=== PATIENT | female | born 1995 | race Two or more races ===

== ENCOUNTER → 2021-03-09 | Outpatient (CLI) | payer OTHER ==
--- NOTE | 2021-03-09 16:15 | REP ---
INDICATION: 2ND TRIMESTER TWIN COMPLETE. COMPARISON: None. TECHNIQUE: Real-time sonographic evaluation of the gravid uterus performed. FINDINGS: There is a living intrauterine twin gestation, diamniotic dichorionic. Estimated gestational age isreportedly 20 weeks 4 days, EDC 07/23/2021. Today's measurements indicate appropriate concordant growth. Closed cervical length is measured at 4.4 cm. Fetus a: Presentation: Breech Placenta anterior, grade 0, without evidence of placenta previa. heart rate is recorded at 147 beats per minute. Amniotic fluid is subjectively normal. Largest pocket of fluid surrounding fetus a 4.4 cm. Biometry chart: BPD: 48 mm, 20 weeks 3 days, 46th percentile. HC: 184 mm, 20 weeks 5 days, 54th percentile AC: 161 mm, 21 weeks 1 days, 63rd percentile Femur length: 34 mm, 20 weeks 6 days, 55th percentile HC to AC ratio: 1.14, normal range 1.06-1.24. Estimated weight: 390g, 66th percentile. anatomy: Cranium: Grossly normal Lateral Ventricles/Choroid Plexus: Grossly normal Posterior Fossa/Cerebellum: Not well seen due to position Nose/lips/profile: Not well seen due to position Four chamber heart: Grossly normal Right ventricular outflow tract: Well seen due to position Left ventricular outflow tract: Not well seen due to position Left-sided stomach: Grossly normal Kidneys: Grossly normal Bladder: Grossly normal Cord Insertion: Grossly normal 3 vessel cord: Grossly normal Spine: Not well seen due to position Fetus b: Presentation: Breech Placenta posterior, grade 0, without evidence of placenta previa. heart rate is recorded at 128 beats per minute. Amniotic fluid is subjectively normal. Largest pocket of fluid surrounding fetus B 5.5 cm. Biometry chart: BPD: 49 mm, 20 weeks 6 days, 57th percentile. HC: 181 mm, 20 weeks 4 days, 48th percentile AC: 158 mm, 21 weeks 0 days, 57th percentile Femur length: 34 mm, 20 weeks 5 days, 52nd percentile HC to AC ratio: 1.15, normal range 1.06-1.24. Estimated weight: 378g, 56th percentile. anatomy: Cranium: Grossly normal Lateral Ventricles/Choroid Plexus: Grossly normal Posterior Fossa/Cerebellum: Grossly normal Nose/lips/profile: Not well seen due to position Four chamber heart: Not well seen due to position Right ventricular outflow tract: Not well seen due to position Left ventricular outflow tract: Not well seen due to position Left-sided stomach: Grossly normal Kidneys: Grossly normal Bladder: Grossly normal Cord Insertion: Grossly normal 3 vessel cord: Grossly normal Spine: Grossly normal IMPRESSION: Viable intrauterine twin gestation as above. <Electronically signed by Guy Balbuena > 03/09/21 [id number]
== END ==
LOC: M RAD 14:51
PROVIDERS: ATTEND Obstetrics & Gynecology Reproductive Endocrinology
DX: O26.852 Spotting complicating pregnancy, second trimester (principal); O30.042 Twin pregnancy, dichorionic/diamniotic, second trimester; Z3A.20 20 weeks gestation of pregnancy

== ENCOUNTER 2021-04-17 00:21 | Emergency (ER) | payer OTHER ==
[~2021-04-17] VITALS: Ht 152.4 cm; Wt 84.9 kg
[2021-04-17 00:23] VITALS: BP 125/77
[2021-04-17] MEDS ORDERED: ASPI81CH33 PO (00:31)
[2021-04-17] MEDS ORDERED: DOCU-153 PO (00:31)
== END 2021-04-17 00:57 | disposition left against medical advice (07) ==
LOC: M ED 00:21
DX: Z53.21 Procedure and treatment not carried out due to patient leaving prior to being seen by health care provider (principal)

== ENCOUNTER 2021-04-18 08:29 | Outpatient (CLI) | payer OTHER ==
[~2021-04-18] VITALS: Ht 152.4 cm; Wt 82.3 kg
[~2021-04-18 08:29] MED LIST: ASPI81CH33 PO; DOCU-153 PO
[2021-04-18] MEDS ORDERED: IRON SUCROSE 300 MG in NS 250 ML OVER 90 MIN. IV ONE (08:30)
[2021-04-18 09:01] VITALS: BP 135/76
[2021-04-18 10:48] VITALS: BP 120/80
== END 2021-04-18 10:50 | disposition home or self-care (01) ==
LOC: M INFU 08:29
PROVIDERS: ATTEND Obstetrics & Gynecology
DX: O99.012 Anemia complicating pregnancy, second trimester (principal); D50.9 Iron deficiency anemia, unspecified; Z3A.25 25 weeks gestation of pregnancy
CPT/HCPCS: 96365; 96366; J1756

== ENCOUNTER 2021-04-26 09:10 | Outpatient (CLI) | payer OTHER ==
[~2021-04-26] VITALS: Ht 147.3 cm; Wt 83.6 kg
[2021-04-26 09:10] VITALS: BP 143/72
[~2021-04-26 09:10] MED LIST changes: +IRON SUCROSE 300 MG in NS 250 ML OVER 90 MIN. IV ONE
[2021-04-26 10:30] VITALS: BP 131/69
[2021-04-26 12:15] VITALS: BP 115/60
== END 2021-04-26 12:30 | disposition home or self-care (01) ==
LOC: M INFU 09:10
PROVIDERS: ATTEND Obstetrics & Gynecology
DX: O99.012 Anemia complicating pregnancy, second trimester (principal); D50.9 Iron deficiency anemia, unspecified; Z3A.25 25 weeks gestation of pregnancy
CPT/HCPCS: 96365; 96366; J1756

== ENCOUNTER 2021-05-03 08:55 | Outpatient (CLI) | payer OTHER ==
[2021-05-03 09:00] VITALS: BP 113/56
[2021-05-03 11:00] VITALS: BP 118/66
== END 2021-05-03 11:05 | disposition home or self-care (01) ==
LOC: M INFU 08:55
PROVIDERS: ATTEND Obstetrics & Gynecology
DX: O99.012 Anemia complicating pregnancy, second trimester (principal); D50.9 Iron deficiency anemia, unspecified; Z3A.25 25 weeks gestation of pregnancy
CPT/HCPCS: 96365; 96366; J1756

== ENCOUNTER 2021-06-28 08:11 | Inpatient (IN) | payer OTHER ==
[~2021-06-28] VITALS: Ht 152.4 cm; Wt 88.0 kg
[2021-06-28] VITALS (7 sets, daily range): BP systolic 114–125; BP diastolic 50–84
[~2021-06-28 08:11] MED LIST changes: +CALC-190 PO; +FLINCHW2 PO; -IRON SUCROSE 300 MG in NS 250 ML OVER 90 MIN. IV ONE; +MELA2.5C4 PO; +OMEP40CA4 PO
[2021-06-28] MEDS ORDERED: TRANEXAMIC ACID INJection 1,000 MG in NS 100 ML IV PRN (09:15)
[2021-06-28] MEDS ORDERED: OXYTOCIN INJ 10 UNITS/ML VIAL (J2590) IM PRN (09:15)
[2021-06-28] MEDS ORDERED: ceFAZolin SOD 2 GM in IV 1 EA IV ONE (09:15)
[2021-06-28] MEDS ORDERED: BICITRA 30ML SOLN UDC PO ONE (09:15)
[2021-06-28] MEDS ORDERED: OXYTOCIN DRIP 30 UNITS in IV 1 EA IV PRN ×4 (09:15)
[2021-06-28] MEDS ORDERED: CARBOPROST TROMETHAMINE 250 MCG/ML AMP IM PRN (09:15)
[2021-06-28] MEDS ORDERED: METHYLERGONOVINE MALEATE 0.2 MG/ML VIAL (J2210) IM PRN (09:15)
[2021-06-28] MEDS ORDERED: AZITHROMYCIN INJ 500 MG, VIAL MATE ADAPTER 1 EACH in NS 250 ML IV ONE (09:15)
[2021-06-28] MEDS: LR 1,000 ML IV SCH ×2 (09:30→17:11)
--- NOTE | 2021-06-28 09:43 | HPEPDOC ---
Obstetrical History & Physical General Date of Admission Jun 28, 2021 at 08:59 History of Present Illness Jose Angel Nguyen is a 25yo G1 at 36+0 weeks gestation with zacarias twins via IVF pres enting for prelabor rupture of membranes. She describes a gush of clear fluid this morning at 0700 which has continued to flow intermittently. She denies vaginal bleeding. She endorses occasional contractions and positive movement. 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 of PID) Past Medical History Surgical History: Other (lsc bl salpingectomy, extensive pelvic adhesions noted) Family History Family History mother - hypertension, depression maternal gm - ovarian cancer maternal gf - colon cancer Social History Marital Status: Family situation: Spouse/partner home Psychosocial History: No pertinent psych hx * Smoker: non-smoker Alcohol: Denies Drugs: denies Abuse Violence Screening Have you been hit/kicked/slapp: No Have you been sexually assault: No Imunizations Tdap status: current Influenza Status: current Allergies Coded Allergies: Latex, Natural Rubber (Verified Allergy, Mild, itching, 06/27/21) Medications Scheduled Aspirin (Aspirin) 81 Mg Tab.chew, 81 MG PO DAILY for pain Calcium Carbonate/Vitamin D3 (Calcium 1,000 + D3 Caplet) 1 Each Tablet, 1 TAB PO DAILY Docusate Sodium (Stool Softener) 100 Mg Capsule, 1 CAP PO DAILY Melatonin (Melatonin) 2.5 Mg Tab.chew, 2.5 MG PO QPM for sleep Multivitamin (Flintstones) 1 Each Tab.chew, 1 CHW PO DAILY Omeprazole (Omeprazole) 40 Mg Capsule.dr, 40 MG PO DAILY Physical Examination Physical Examination GENERAL: Alert and oriented times three. ABDOMEN: Gravid and non-tender to touch. FETUS: by abdominal ultrasound, twin A cephalic twin B transverse maternal left occiput HEART RATE: Regular rate LUNGS: nonlabored breathing EXTREMITIES: No edema. 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 No visual dilation of cervix. Digital exam deferred. Laboratory Data 24H LABS Laboratory Tests 2 06/28/21 09:17: Serology Scanned Report Hepatitis B Testing Urine Culture: No Growth Pertinent Laboratoy Data Blood Type: O+ RBC Antibody Screen: Negative HIV: Negative Hepatitis B: Negative Rapid Plasma Reagin: Nonreactive Rubella: Immune Varicella: Nonreactive Chlamydia/Gonorrhea: Negative Group B Streptococcus: Unknown Cystic Fibrosis: Negative Glucose Tolerance Test: 140 Anatomy Ultrasound Placenta Location: Twin A (anterior / twin B posterior) Normal Anatomy: Yes Placenta Previa: No (resolved) Other Ultrasounds Information Twin A placenta anterior Twin B placenta posterior Normal anatomy for both twins Steroid Therapy Steroid Therapy: No Vaginal Examination Dilation: None (visually on speculum exam) Assessment/Plan Assessment Jose Angel Nguyen is a 25yo G1 at 36+0 with zacarias twins by IVF presenting with late rupture of membranes. She was initially scheduled for at 38 weeks. She otherwise feels well today and denies vaginal bleeding. Endorses irregular contractions and positive movement. GBS testing was collected in clinic last week, contacting clinic for results. Otherwise category I tracing for both fetuses. Twin A cephalic, twin B transverse. Plan To OR for delivery. I discussed with the patient mode of delivery and she is requesting delivery. We discussed delivery vs expectant management and she desires delivery. We discussed late steroids and she declines steroids at this time. All of this is reasonable in my opinion and we will proceed to delivery. I requested a second export clerk to assist me due to her history of extensive pelvic adhesions. Dr. Coburn is available at 1030 so we will proceed at that time. Labs drawn, anesthesia consulted. Ancef and azithromycin for surgical prophylaxis. Labor and Delivery Counseling Discussed risks of delivery including infection, bleeding, damage to nearby tissues/organs, damage to the fetus, maternal , risks of anesthesia. Also consented for blood transfusion and discussed possible need for hysterectomy as life-saving measure. She agrees to the procedure and indicating understanding of the conversation. JAVIER COOPER DO Jun 28, 2021 09:43
[2021-06-28] MEDS ORDERED: HOME MED LIST COMPLETE! XX SCH (09:45)
[2021-06-28 09:53] LABS: MEAN CORPUSCULAR HEMOGLOBIN 27.7 pg (27.0-33.0); MEAN CORPUSCULAR HGB CONC 35.1 g/dl (32.0-36.5); MEAN CORPUSCULAR VOLUME 78.9 fl (80.0-96.0); PLATELET COUNT, AUTOMATED 154 10^3/uL (150-450); RED BLOOD COUNT 4.69 10^6/uL (4.00-5.40); WHITE BLOOD COUNT 6.2 10^3/uL (4.0-10.0)
[2021-06-28] MEDS ORDERED: MORPHINE PRES-FREE INJ 10 MG/10 ML VIAL (J2274) As Ordered ONE (10:37)
[2021-06-28] MEDS ORDERED: OXYTOCIN 30 UNITS IN 0.9% NaCl 500ML IV BAG (J2590) As Ordered ONE ×2 (10:39→13:05)
[2021-06-28] MEDS ORDERED: METOCLOPRAMIDE INJ 10MG/2ML VIAL (J2765 PER 1) As Ordered ONE (10:42)
[2021-06-28] MEDS ORDERED: ONDANSETRON 4MG/2ML VIAL As Ordered ONE (10:42)
[2021-06-28] MEDS ORDERED: ONDANSETRON 4MG/2ML VIAL IV PRN ×3 (11:15→13:25)
[2021-06-28] MEDS ORDERED: NALOXONE INJ 0.4MG/1ML VIAL (J2310 PER 1MG) IV PRN ×2 (11:15)
[2021-06-28] MEDS ORDERED: NALBUPHINE HCL 10 MG/ML AMP (J2300) IV PRN (11:15)
[2021-06-28] MEDS ORDERED: diphenhydrAMINE 50MG/ML VIAL (J1200) IV PRN (11:15)
[2021-06-28] MEDS ORDERED: METOCLOPRAMIDE INJ 10MG/2ML VIAL (J2765 PER 1) IV PRN (11:15)
[2021-06-28] MEDS ORDERED: MIDAZOLAM INJ 2MG/2ML VIAL (J2250 PER 1MG) As Ordered ONE (11:22)
[2021-06-28] MEDS ORDERED: ePHEDrine SULFATE 25 MG/5 ML(5MG/ML) SYRINGE As Ordered ONE (11:36)
[2021-06-28] MEDS ORDERED: PHENYLephrine 500MCG 5ML (100MCG/ML) SYRINGE As Ordered ONE (11:36)
[2021-06-28] MEDS ORDERED: MEPERIDINE 50 MG/ML 1ML VIAL (J2175) As Ordered ONE (11:55)
[2021-06-28 12:11] LABS: CORD GAS ABE A -10.8; CORD GAS ABE V -10.8; CORD GAS HCO3 A 20.9 MEQ/L; CORD GAS HCO3 V 17.5 MEQ/L; CORD GAS O2 SAT A 23.7 %; CORD GAS O2 SAT V 79.4 %; CORD GAS PCO2 A 74.7 mmHg; CORD GAS PCO2 V 47.4 mmHg; CORD GAS PH A 7.065 UNITS; CORD GAS PH V 7.184 UNITS; CORD GAS PO2 A 17.6 mmHg; CORD GAS PO2 V 42.9 mmHg; CORD GAS SBC A 14.6 MEQ/L; CORD GAS SBC V 15.7 MEQ/L; CORD GAS TCO2 A 23.2 MEQ/L; CORD GAS TCO2 V 18.9 MEQ/L
[2021-06-28 12:14] LABS: CORD GAS ABE V -5.1; CORD GAS HCO3 V 22.4 MEQ/L; CORD GAS PCO2 V 50.1 mmHg; CORD GAS PH V 7.268 UNITS; CORD GAS PO2 V 34.9 mmHg; CORD GAS SBC V 19.8 MEQ/L; CORD GAS TCO2 V 23.9 MEQ/L
[2021-06-28 12:15] LABS: CORD GAS ABE A -7.4; CORD GAS HCO3 A 21.4 MEQ/L; CORD GAS O2 SAT A 71.5 %; CORD GAS PH A 7.201 UNITS; CORD GAS PO2 A 36.1 mmHg; CORD GAS TCO2 A 23.2 MEQ/L
[2021-06-28] MEDS ORDERED: KETOROLAC 60MG 2ML VIAL As Ordered ONE (12:19)
[2021-06-28] MEDS ORDERED: DOCUSATE SODIUM 100MG CAPSULE PO PRN (12:40)
[2021-06-28] MEDS ORDERED: PROMETHAZINE 25 MG TAB PO PRN (12:40)
[2021-06-28] MEDS ORDERED: RHOGAM 300 MCG (1500 IU) INJ (J2790) IM SCH (12:40)
[2021-06-28] MEDS ORDERED: MEASLES,MUMPS,RUBELLA VACCINE INJ (MMR-II) (90707) SC SCH (12:40)
[2021-06-28] MEDS ORDERED: METHYLERGONOVINE MALEATE 0.2 MG TAB PO PRN (12:40)
[2021-06-28] MEDS ORDERED: oxyCODONE 5MG TAB PO PRN ×3 (12:40→13:25)
[2021-06-28] MEDS ORDERED: MORPHINE 2 MG/ML 1ML VIAL (J2270) IV PRN (12:40)
--- NOTE | 2021-06-28 12:56 | ROOPDOC ---
[facility] Report Of Operation Report of Operation DATE OF PROCEDURE: 06/28/21 PREPROCEDURE DIAGNOSES: zacarias twin gestation, rupture of membranes, 36 weeks gestation, maternal request for POSTPROCEDURE DIAGNOSES: same as above, delivered PROCEDURE PERFORMED: primary low transverse delivery SURGEON: Javier Dong DO HISTOLOGY TEACHER: Steven Coburn DO ANESTHESIA: spinal ESTIMATED BLOOD LOSS: Approximately 700 mL. COMPLICATIONS: none FINDINGS: Twin A cephalic presentation, apgars 9/9; 2630g, Twin B breech apgars 7/9, 2690g. Normal appearing uterus and ovaries. Tubes not present. SPECIMENS REMOVED: arterial and venous cord blood gases for each twin DESCRIPTION OF PROCEDURE: After obtaining informed consent the patient was taken to the operating room and prepped/draped in the usual manner. A timeout was called and the patient name, date of and procedure to be performed were verified. A scalpel was used to make a transverse skin incision which was carried down to the fascia and and the fascia was scored. The fascial incision was extended laterally with scissors. The fascia was then dissected bluntly and sharply both superiorly and inferiorly from the rectus muscles. The peritoneum was entered bluntly and this was extended with traction. A bladder flap was created. The uterus was incised low transverse with the scalpel then entered bluntly with clear fluid noted. Twin A cephalic delivered easily with fundal pressure. The cord was clamped, cut and handed to awaiting pediatricians. I then attempted to deliver baby B and kept getting a hand as the presenting part. Dr. Coburn then was able to secure the legs and deliver them. I then proceeded with the usual breech delivery without issue. The cord was cut, clamped and the handed to awaiting pediatricians. Both placentas then delivered spontaneously and intact. The uterus was exteriorized and wiped with laparotomy sponges. The uterine incision was closed with 0-vicryl in a running locking fashion. Several 0-vicryl figure of eight sutures were placed for hemostasis. The posterior culdesac was irrigated with saline. The uterus was returned to the abdomen. Arrista was placed for hemotasis in the bladder flap. Hemostasis was noted at this and at the hysterotomy. The fascia was closed with running 0-vicryl. The subcutaneous tissue was irrigated and closed with 3-0 vicryl. The skin was closed with 4-0 monocryl. An optifoam dressing was placed. The vagina was cleared of clots. The patient was left in good condition en route to the PACU. JAVIER DONG. DO Jun 28, 2021 12:56
[2021-06-28] MEDS ORDERED: LR 1,000 ML IV SCH (13:25)
[2021-06-28] MEDS ORDERED: fentaNYL 100 MCG/2 ML INJECTION (J3010) IV PRN (13:25)
[2021-06-28] MEDS: ACETAMINOPHEN 500 MG TAB PO SCH ×2 (15:22→21:20)
[2021-06-28] MEDS: OMEPRAZOLE 20 MG CAP PO SCH (17:33)
[2021-06-28] MEDS: KETOROLAC 30 MG/ML 1ML VIAL IV SCH (18:06)
[2021-06-29] MEDS: KETOROLAC 30 MG/ML 1ML VIAL IV SCH ×2 (00:21→06:14)
[2021-06-29] MEDS: LR 1,000 ML IV SCH ×2 (01:15→09:20)
[2021-06-29] MEDS ORDERED: LR 500 ML IV ONE ×2 (01:20→05:05)
[2021-06-29] MEDS: SIMETHICONE 80MG CHEW TAB PO PRN (01:26)
[2021-06-29 02:00] VITALS: BP 111/60
[2021-06-29] MEDS: ACETAMINOPHEN 500 MG TAB PO SCH ×4 (04:25→21:34)
[2021-06-29 06:00] VITALS: BP 111/59
--- NOTE | 2021-06-29 06:59 | IPNPDOC ---
Progress Note Date of Service: Jun 29, 2021 Day#: 1 Progress Note SUBJECT: Jose Angel Nguyen is a 25-year-old 1 now Para 1002 status post uncomplicated primary low transverse delivery at 36+0 weeks' indicated for rupture of membranes and maternal request at approximately 1138 and 1142 hours on [id number] of two boys 2630g and 2690g; doing well day # 1. She has yet to ambulate, has a andersen in place and tolerating regular diet. Breast feeding/pumping without issue. Reports lochia is small. Her urine output has been low since surgery however is responding to fluid bolus. OBJECTIVE: VITAL SIGNS: Within normal limits, afebrile. Alert and oriented times three. Breath sounds clear to auscultation. Heart rate: Regular rate and rhythm, no murmurs, rubs or gallops. Abdomen: Fundus firm at U-2. Soft, appropriate tenderness postoperatively; gas distension tympanic to percussion, +bowel sounds. Incision covered with Optifoam with no strikethrough Negative calf tenderness bilaterally. [Minimal] lochia. ASSESSMENT: as above, doing well on day 1. Continue to encourage PO and monitor urine output. Consider bolus. Okay to start due to void in order to encourage ambulation. Vitals within normal limits, afebrile, hemodynamically stable with no evidence of infection. PLAN: - Tylenol and Motrin scheduled for pain. - Continue to encourage PO and monitor urine output. Consider bolus. Okay to start due to void in order to encourage ambulation. - Encourage breast feeding and ambulation. - IVF , tubes already removed - Routine PP visit in 2 and 6 weeks in clinic. - likely discharge tomorrow VS, I&O, 24H, Eliasbonleticia Vital Signs/I&O Vital Signs Date Time Temp Pulse Resp B/P (MAP) Pulse Ox O2 Delivery O2 Flow Rate FiO2 06/29/21 06:00 98.0 81 18 111/59 (76) 98 Room Air I&O- Last 24 Hours up to 6 AM 06/29/21 06:00 Intake Total 920 ml Output Total 1480 ml Balance -560 ml Laboratory Data 24H LABS Laboratory Tests 2 06/28/21 09:17: Serology Scanned Report Hepatitis B Testing 06/28/21 09:34: Nucleated Red Blood Cells % (auto) 0.0, Syphilis Serology NONREACTIVE, C oronavirus (COVID-19)(PCR) NEGATIVE 06/28/21 11:56: Cord Arterial Blood pH 7.065, Cord Arterial Blood PCO2 74.7, Cord Arterial Blood PO2 17.6, Cord Arterial Blood HCO3 20.9, Cord Arterial Blood Total CO2 23.2, Cord Arterial Blood Base Excess -10.8, Cord Arterial Base Excess (Standard 14.6, Cord Arterial Bld Oxygen Saturation 23.7, Cord Venous Blood pH 7.184, Cord Venous Blood PCO2 47.4, Cord Venous Blood PO2 42.9, Cord Venous Blood HCO3 17.5, Cord Venous Blood Total CO2 18.9, Cord Venous Base Excess (Actual) -10.8, Cord Venous Base Excess (Standard) 15.7, Cord Venous Blood Oxygen Saturation 79.4 06/28/21 12:01: Cord Arterial Blood pH 7.201, Cord Arterial Blood PCO2 56.0, Cord Arterial Blood PO2 36.1, Cord Arterial Blood HCO3 21.4, Cord Arterial Blood Total CO2 23.2, Cord Arterial Blood Base Excess -7.4, Cord Arterial Base Excess (Standard 18.0, Cord Arterial Bld Oxygen Saturation 71.5, Cord Venous Blood pH 7.268, Cord Venous Blood PCO2 50.1, Cord Venous Blood PO2 34.9, Cord Venous Blood HCO3 22.4, Cord Venous Blood Total CO2 23.9, Cord Venous Base Excess (Actual) -5.1, Cord Venous Base Excess (Standard) 19.8, Cord Venous Blood Oxygen Saturation 75.0 CBC/BMP Laboratory Tests 06/28/21 09:34 JAVIER COOPER DO Jun 29, 2021 06:59
[2021-06-29 08:04] LABS: HEMATOCRIT 29.4 % (36.0-47.0); MEAN CORPUSCULAR HEMOGLOBIN 27.9 pg (27.0-33.0); MEAN CORPUSCULAR HGB CONC 35.4 g/dl (32.0-36.5); MEAN CORPUSCULAR VOLUME 78.8 fl (80.0-96.0); PLATELET COUNT, AUTOMATED 148 10^3/uL (150-450); RED BLOOD COUNT 3.73 10^6/uL (4.00-5.40); WHITE BLOOD COUNT 9.4 10^3/uL (4.0-10.0)
[2021-06-29 08:15] LABS: HEMOGLOBIN 10.4 g/dl (12.0-15.5)
[2021-06-29] MEDS ORDERED: PRENATAL VITAMINS CHEWABLE TABLET PO SCH (09:00)
[2021-06-29] MEDS: PRENATAL VITAMINS CHEWABLE TABLET PO SCH (09:20)
[2021-06-29] MEDS: OMEPRAZOLE 20 MG CAP PO SCH (09:21)
[2021-06-29 10:00] VITALS: BP 109/54
[2021-06-29 14:00] VITALS: BP 112/71
[2021-06-29] MEDS: IBUPROFEN 800 MG TAB PO SCH ×2 (14:13→21:34)
[2021-06-29 18:01] VITALS: BP 113/59
[2021-06-29 22:00] VITALS: BP 111/61
[2021-06-30] MEDS: ACETAMINOPHEN 500 MG TAB PO SCH ×4 (03:51→21:44)
[2021-06-30] MEDS: IBUPROFEN 800 MG TAB PO SCH ×3 (05:49→21:43)
[2021-06-30 05:56] VITALS: BP 111/66
--- NOTE | 2021-06-30 07:06 | IPNPDOC ---
Progress Note Date of Service: Jun 30, 2021 Day#: 2 Progress Note SUBJECT: Jose Angel Nguyen is a 25-year-old 1 now Para 1002 status post uncomplicated primary low transverse delivery at 36+0 weeks' indicated for rupture of membranes and maternal request at approximately 1138 and 1142 hours on [id number] of two boys 2630g and 2690g; doing well day # 2. She has been ambulating, voiding spontaneously without issue and tolerating regular diet. Breast feeding without issue. Reports lochia is less than a normal period]. Patient is ambulating well. [Reports some cramping with . Denies any pain. Voiding and passing flatus without difficulty]. OBJECTIVE: VITAL SIGNS: Within normal limits, afebrile. Alert and oriented times three. No increased WOB Heart rate: non tachy Abdomen: Fundus firm at U-2. Soft, NTTP. Pfannenstiel incision is covered with o ptifoam without strikethrough. [Minimal] lochia. ASSESSMENT: Jose Angel Nguyen is a 25-year-old 1 now Para 1002 status post uncomplicated primary low transverse delivery at 36+0 weeks' indicated for rupture of membranes and maternal request at approximately 1138 and 1142 hours on [id number] of two boys 2630g and 2690g; doing well day # 2. Vitals within normal limits, afebrile, hemodynamically stable with no evidence of infection. PLAN: 1. Discharge to home likely tomorrow. 2. Tylenol and Motrin for pain. 3. Encourage breast feeding and ambulation. 4. She has a BTL for contraception 5. Routine PP visit in 6 weeks in clinic. 6. Discussed return precautions at length. VS, I&O, 24H, Eliasbone Vital Signs/I&O Vital Signs Date Time Temp Pulse Resp B/P (MAP) Pulse Ox O2 Delivery O2 Flow Rate FiO2 06/30/21 05:56 97.8 78 16 111/66 (81) 96 Room Air I&O- Last 24 Hours up to 6 AM 06/30/21 06:00 Intake Total 600 ml Output Total 450 ml Balance 150 ml Laboratory Data 24H LABS Laboratory Tests 2 06/29/21 07:37: Nucleated Red Blood Cells % (auto) 0.0 CBC/BMP Laboratory Tests 06/29/21 07:37 RAHUL KELLY DO Jun 30, 2021 07:06
[2021-06-30] MEDS: INFLUENZA QUADRIVALENT PF VACCINE 0.5ML SYRINGE IM ONE ×2 (08:29→12:58)
[2021-06-30] MEDS: PRENATAL VITAMINS CHEWABLE TABLET PO SCH (08:30)
[2021-06-30] MEDS: OMEPRAZOLE 20 MG CAP PO SCH (08:30)
[2021-06-30 18:07] VITALS: BP 120/62
[2021-07-01] MEDS: ACETAMINOPHEN 500 MG TAB PO SCH ×2 (03:05→08:33)
[2021-07-01 03:10] VITALS: BP_SYST 118; BP_SYST 120; BP_DIAS 63; BP_DIAS 67
[2021-07-01] MEDS: SIMETHICONE 80MG CHEW TAB PO PRN (03:10)
--- NOTE | 2021-07-01 04:31 | OBDS ---
[facility] Obstetrical Discharge Sum. Obstetrical Discharge Summary Date: Jul 01, 2021 Anesthesia: Local Anesthesia A/P, Post Course List any complications Admission diagnosis: twin gestation, PPROM Discharge diagnosis: SAME ABOVE, DELIVERY Condition at Discharge: STABLE Discharge Instructions: Home Activity: Pelvic rest for 6 weeks Diet: regular Medications: at home Follow-up: 2 and 6 weeks PP Other: VITAL SIGNS: Within normal limits, afebrile. Alert and oriented times three. No increased WOB Heart rate: non tachy Abdomen: Fundus firm at U-2. Soft, NTTP. Pfannenstiel incision is covered with optifoam without strikethrough. ASSESSMENT: Jose Angel Nguyen is a 25-year-old 1 now Para 1002 status post uncomplicated primary low transverse delivery at 36+0 weeks' indicated for rupture of membranes and maternal request at approximately 1138 and 1142 hours on [id number] of two boys 2630g and 2690g; doing well day # 3. Vitals within normal limits, afebrile, hemodynamically stable with no evidence of infection. PLAN: 1. Discharge to home Today 2. oxycodone Tylenol and Motrin for pain. already at home 3. Encourage breast feeding and ambulation. 4. She has a BTL for contraception 5. Routine PP visit in 2 and 6 weeks in clinic. 6. Discussed return precautions at length. MARVIN ROBLES MD Jul 01, 2021 4:31 am
[2021-07-01] MEDS: IBUPROFEN 800 MG TAB PO SCH (05:58)
[2021-07-01 06:07] VITALS: BP 139/75
[2021-07-01] MEDS: PRENATAL VITAMINS CHEWABLE TABLET PO SCH (08:32)
[2021-07-01] MEDS: OMEPRAZOLE 20 MG CAP PO SCH (08:32)
== END 2021-07-01 11:55 | disposition home or self-care (01) | DRG 773 ==
LOC: M LDO 08:11 → M LDI 08:59 → M OBS 14:12
PROVIDERS: ADMIT Obstetrics & Gynecology; ATTEND Obstetrics & Gynecology
PROC: 10D00Z1 Extraction of Products of Conception, Low, Open Approach (ICD-10-PCS; principal; 2021-06-28 10:24)
DX: O42.013 Preterm premature rupture of membranes, onset of labor within 24 hours of rupture, third trimester (principal); Z3A.36 36 weeks gestation of pregnancy; Z37.2 Twins, both liveborn; O30.043 Twin pregnancy, dichorionic/diamniotic, third trimester; O64.1XX2 Obstructed labor due to breech presentation, fetus 2